=== PATIENT | female | born 2000 | race Hispanic/Latino ===

== ENCOUNTER 2023-04-20 12:48 | Emergency (ER) | payer BC ==
[2023-04-20] MEDS ORDERED: ZPAK PO (14:30)
[2023-04-20 14:45] VITALS: BP 120/77
== END 2023-04-20 14:46 | disposition home or self-care (01) | DRG 203 ==
LOC: ED 12:48
DX: J45.909 Unspecified asthma, uncomplicated (principal); J02.9 Acute pharyngitis, unspecified; Z20.822 Contact with and (suspected) exposure to COVID-19